=== PATIENT | female | born 1995 | race Caucasian/White ===

== ENCOUNTER 2018-05-05 20:49 | Emergency (ER) | payer OTHER ==
[~2018-05-05] VITALS: Ht 167.6 cm; Wt 54.5 kg
[2018-05-05 20:54] VITALS: TEMP 97.6
[2018-05-05 22:16] LABS: COLLECTION METHOD CLEAN CATCH
[2018-05-05 22:28] LABS: MUCOUS Present /lpf; PH 5 (5-8); URINE APPEARANCE Hazy; URINE BACTERIA Rare /hpf; URINE BILIRUBIN Negative (NEGATIVE); URINE BLOOD 1+ (NEGATIVE); URINE COLOR Amber; URINE GLUCOSE Negative (NEGATIVE); URINE KETONE 2+ (NEGATIVE); URINE LEUKOCYTE ESTERASE Trace (NEGATIVE); URINE NITRATE Negative (NEGATIVE); URINE PROTEIN(semi-quant) 1+ (NEGATIVE); URINE RBC 0-2 /hpf
[2018-05-05 22:41] LABS: MEAN CELL VOLUME 91 fl (80.0-100.0); MEAN CORPUSCULAR HEMOGLOBIN 32 pg (27.0-31.0); MEAN CORPUSCULAR HGB CONC 35 g/dl (33.0-37.0); MEAN PLATELET VOLUME 11.5 fl (7.4-10.4); PLATELET COUNT 169 K/mm3 (130-400); RED BLOOD COUNT 3.76 M/mm3 (4.10-5.30)
[2018-05-05] MEDS ORDERED: ZOFRAN 4MG T4 MG/TAB PO (22:42)
[2018-05-05 22:55] LABS: ALANINE AMINOTRANSFERASE 36 U/L (9-52); ALBUMIN 4.5 gm/dL (3.5-5.0); ALKALINE PHOSPHATASE 81 U/L (50-136); ANION GAP 10 mmol/L (7-16); AST,SGOT 31 U/L (15-37); BILIRUBIN,TOTAL 0.5 mg/dL (0.0-1.0); BLOOD UREA NITROGEN 5 mg/dL (7-17); CALCIUM 9.4 mg/dL (8.4-10.2); CARBON DIOXIDE 24 mmol/L (22-30); CHLORIDE 107 mmol/L (98-107); CREATININE, serum 0.67 mg/dL (0.52-1.25); GLUCOSE 95 mg/dL (74-106); HEMATOCRIT 34.3 % (37.0-47.0); POTASSIUM 3.2 mmol/L (3.4-5.0); SODIUM 141 mmol/L (137-145)
[2018-05-05 23:01] LABS: C-REACTIVE PROTEIN < 0.5 mg/dL (0.0-0.9)
[2018-05-05 23:08] LABS: TROPONIN-I < 0.012 ng/mL (0.000-0.035)
[2018-05-06 00:50] LABS: BASOPHIL 1 % (0-2); EOSINOPHIL 1 % (0-4); NEUTROPHILS 54 % (42.0-75.2)
[2018-05-06 00:51] LABS: ANISOCYTOSIS 1+; LYMPHOCYTE 38 % (20.0-51.0); POIKILOCYTOSIS 1+; POLYCHROMASIA 2+
[2018-05-06 01:44] VITALS: BP 115/61
[2018-05-06] MEDS ORDERED: PHENERGAN 25 TA25 MG PO (01:48)
[2018-05-06 02:20] VITALS: PULSE 91
== END 2018-05-06 02:22 | disposition home or self-care (01) ==
LOC: COL.ER 20:49
PROVIDERS: Nurse Practitioner
DX: R07.9 Chest pain, unspecified (principal); R11.10 Vomiting, unspecified; R19.7 Diarrhea, unspecified; Z88.1 Allergy status to other antibiotic agents
CPT/HCPCS: J1885; J2405; J7030